=== PATIENT | female | born 1980 | race Caucasian/White ===

== ENCOUNTER 2022-07-19 20:15 | Emergency (ER) | payer MEDICAID ==
[~2022-07-19] VITALS: Ht 160 cm; Wt 95.3 kg
[2022-07-19 20:49] VITALS: BP_SYST 175; BP_SYST 188; BP_DIAS 110; BP_DIAS 124
--- NOTE | 2022-07-19 20:52 | NUR ---
TO LOBBY A/W BED AMBULATORY
--- NOTE | 2022-07-19 21:08 | NUR ---
Dr. Segura examining patient.
[2022-07-19] MEDS ORDERED: SUD30 PO (21:22)
[2022-07-19] MEDS ORDERED: CETI10SG1 PO (21:22)
[2022-07-19] MEDS ORDERED: IBUP-2213 PO (21:22)
[2022-07-19] MEDS ORDERED: SODI44SP20 NS (21:22)
--- NOTE | 2022-07-19 21:35 | NUR ---
SWABS FOR MICHELLE, INFLUENZA, STREP ,SENT TO LAB
[2022-07-19 22:05] VITALS: BP 140/89
--- NOTE | 2022-07-19 22:05 | NUR ---
Patient discharged with v/s stable. Written and verbal after care instructions given and explained. Patient alert, oriented and verbalized understanding of instructions. Ambulatory with steady gait. All questions addressed prior to discharge. ID band removed. Patient advised to follow up with PMD. Rx of ZYRTEC, BUPROFEN, NASAL SPRAY, SUDAFED given. Patient educated on indication of medication including possible reaction and side effects. Opportunity to ask questions provided and answered.
== END 2022-07-19 22:05 | disposition home or self-care (01) ==
LOC: MED 20:15
DX: J02.9 Acute pharyngitis, unspecified (principal); Z20.822 Contact with and (suspected) exposure to COVID-19
CPT/HCPCS: 87081; 99283

== ENCOUNTER 2023-01-16 16:23 | Inpatient (IN) | payer MEDICAID ==
[~2023-01-16] VITALS: Ht 167.6 cm; Wt 121.6 kg
[~2023-01-16 16:23] MED LIST: CETI10SG1 PO; IBUP-2213 PO; SODI44SP20 NS; SUD30 PO
[2023-01-16 16:24] VITALS: BP 173/96
--- NOTE | 2023-01-16 16:25 | NUR ---
LOBBY Addendum: 01/16/23 at 1641 by [email or web address] HANDED ON URINE CUP.
--- NOTE | 2023-01-16 16:29 | NUR ---
PT C/O N/V,GENERALIZED ABDOMINAL PAIN X2 DAYS. SEEN AT [facility] YESTERDAY DX WITH HERNIA PMH: ASTHMA
--- NOTE | 2023-01-16 16:47 | NUR ---
PT W/C ASSISTED TO BED 12.
--- NOTE | 2023-01-16 16:56 | NUR ---
here for umbilical hernia pain 06/07, seen at [facility] yesterday for same complain, told to follow up this coming week + vomiting six times today last bm, yesterday
[2023-01-16 17:33] LABS: BASOPHILS % (AUTO) 0.4 % (0.0-2.0); EOSINOPHILS % (AUTO) 0.1 % (0.0-4.0); HEMATOCRIT 38.8 % (36-48); HEMOGLOBIN 12.5 g/dL (12.0-16.0); LYMPHOCYTES # (AUTO) 1.2 K/uL (2.5-16.5); LYMPHOCYTES % (AUTO) 10.3 % (20.5-51.1); MEAN CORPUSCULAR HEMOGLOBIN 24 pg (27-31); MEAN CORPUSCULAR HGB CONC 32 g/dL (33-37); MEAN CORPUSCULAR VOLUME 74.6 fL (80-94); MONOCYTES # (AUTO) 0.6 K/uL (0.8-1.0); MONOCYTES % (AUTO) 5.4 % (1.7-9.3); NEUTROPHILS # (AUTO) 9.6 K/uL (1.8-7.7); NEUTROPHILS % (AUTO) 83.8 % (42.2-75.2); PLATELET COUNT (AUTO) 313 K/uL (140-450); RED CELL DISTRIBUTION WIDTH 16.4 % (11.6-13.7); WHITE BLOOD COUNT (AUTO) 11.5 K/uL (4.8-10.8)
--- NOTE | 2023-01-16 17:35 | NUR ---
pt to ct via [facility]
[2023-01-16 17:39] LABS: APPEARANCE,URINE SL CLOUDY (CLEAR); BILIRUBIN,URINE 1+ (NEGATIVE); BLOOD, URINE 3+ (NEGATIVE); COLOR,URINE RED (YELLOW); LEUKOCYTE ESTERASE ,URINE TRACE (NEGATIVE); NITRITE, URINE POSITIVE (NEGATIVE); PH,URINE 5.5 (5.0-9.0); UGLUCOSE NEGATIVE (NEGATIVE)
[2023-01-16 17:58] LABS: ALBUMIN 3.8 g/dL (3.4-5.0); ANION GAP 10.7 (8-16); CARBON DIOXIDE 29.7 mmol/L (21-32); CREATININE 0.8 mg/dL (0.6-1.3); POTASSIUM 3.4 mmol/L (3.5-5.1); TOTAL BILIRUBIN 0.1 mg/dL (0.0-1.0)
--- NOTE | 2023-01-16 18:00 | NUR ---
Leatha sargent in [facility] - 01/16/23 at [id number] Raine tinocoied, rayne rai sliding scale
[2023-01-16] MEDS ORDERED: MIRABULK PO (18:12)
[2023-01-16] MEDS ORDERED: DOCU-299 PO (18:12)
[2023-01-16] MEDS ORDERED: AMOX1TAB8 PO (18:14)
[2023-01-16] MEDS ORDERED: TRAM50TA3 PO (18:15)
[2023-01-16] MEDS ORDERED: MORPHINE SULFATE 2 MG/ML SYR IVP STA (18:16)
[2023-01-16] MEDS ORDERED: ACET-8905 PO (18:16)
[2023-01-16] MEDS ORDERED: IBUP-1842 PO (18:16)
[2023-01-16] MEDS ORDERED: NACL 0.9% 1,000 ML IV ONE (18:20)
[2023-01-16] MEDS ORDERED: ONDANSETRON 4 MG/2 ML VIAL IVP ONE (18:20)
[2023-01-16 18:22] LABS: RBC,URINE TOO NUMEROUS TO COUN /HPF (0-5)
[2023-01-16 18:23] LABS: WBC,URINE TOO MANY TO COUNT /HPF (0-5)
[2023-01-16 18:24] LABS: TRICHOMONAS,URINE None Seen /HPF (None Seen); YEAST,URINE None Seen /HPF (None Seen)
[2023-01-16] MEDS ORDERED: KCL 20 MEQ IN 100 mL PREMIX 200 ML IV ONE (18:40)
[2023-01-16] MEDS ORDERED: cefTRIAXone 1,000 MG VIAL ONE (18:40)
--- NOTE | 2023-01-16 18:51 | NUR ---
pt medicated for abd pain, will go to sx, around 1930, ns running wel esteban, sr up times 2
[2023-01-16] MEDS ORDERED: METOCLOPRAMIDE 10 MG/2 ML INJ VIAL ONE (19:00)
[2023-01-16] MEDS ORDERED: SUGAMMADEX SODIUM 200 MG/2 ML VIAL IV ONE ×2 (19:00→21:58)
[2023-01-16] MEDS ORDERED: PROPOFOL 200 MG/20 ML VIAL IV ONE ×2 (19:00→19:56)
[2023-01-16] MEDS ORDERED: ROCURONIUM 50 MG/5 ML VIAL IV ONE ×3 (19:00→20:56)
[2023-01-16] MEDS ORDERED: SUCCINYLCHOLINE CHLORIDE 200 MG/10 ML VIAL IVP ONE ×2 (19:00→19:56)
[2023-01-16] MEDS ORDERED: MEPERIDINE 50 MG/ML SYR ONE ×2 (19:00→20:36)
[2023-01-16] MEDS ORDERED: SEVOFLURANE 250 ML BTL INH ONE (19:00)
[2023-01-16] MEDS ORDERED: diphenhydrAMINE 50 MG/ML VIAL IVP PRN (19:45)
[2023-01-16] MEDS: LACTATED RINGERS 1,000 ML IV SCH (19:45)
[2023-01-16] MEDS ORDERED: MEPERIDINE 25 MG/ML SYR IVP PRN (19:45)
[2023-01-16] MEDS ORDERED: HYDROmorphone 1 MG/ML AMP IVP PRN (19:45)
[2023-01-16] MEDS ORDERED: ONDANSETRON 4 MG/2 ML VIAL IVP PRN (19:45)
--- NOTE | 2023-01-16 19:45 | NUR ---
Patient will be admitted to care of [facility]. Admited to pacu. Will go to room pacu. Belongings list completed. Report to FRANCK.
[2023-01-16] MEDS ORDERED: fentaNYL citrate 0.05 MG/ML VIAL ONE (19:50)
[2023-01-16] MEDS ORDERED: BUPIVACAINE-MPF 0.25% 30 ML VIAL INJ ONE (19:50)
[2023-01-16] MEDS ORDERED: ceFAZolin 1,000 MG VIAL ONE (19:54)
[2023-01-16] MEDS ORDERED: ONDANSETRON 4 MG/2 ML VIAL ONE (19:56)
[2023-01-16] MEDS ORDERED: POTASSIUM CHLORIDE 40 MEQ, LIDOCAINE MPF 1% 25 MG in NACL 0.9% 250 ML IV PRN (20:45)
[2023-01-16] MEDS ORDERED: ZOLPIDEM 5 MG TAB PO PRN (20:45)
[2023-01-16] MEDS ORDERED: DOCUSATE SODIUM 100 MG GELCAP PO PRN (20:45)
[2023-01-16] MEDS ORDERED: guaiFENesin DM 200/20 MG-10 ML 10 ML UDC PO PRN (20:45)
[2023-01-16] MEDS: DEXT 5% /NACL 0.9% 1,000 ML IV SCH (20:45)
[2023-01-16] MEDS ORDERED: ONDANSETRON 4 MG/2 ML VIAL IM/IVP PRN (20:45)
[2023-01-16] MEDS ORDERED: ACETAMINOPHEN 325 MG TAB PO PRN (20:45)
[2023-01-16 21:36] LABS: PROTHROMBIN TIME 10.9 secs (10.8-13.4)
[2023-01-16 21:48] LABS: FREE T4 (FREE THYROXINE) 1.06 ng/dL (0.76-1.46); PHOSPHORUS 3.4 mg/dL (2.5-4.9); THYROID STIMULATING HORMONE 1.23 uIU/mL (0.34-3.74)
[2023-01-16] MEDS ORDERED: MEPERIDINE 25 MG/ML SYR ONE (22:06)
[2023-01-16] MEDS: LABETALOL 100 MG/20 ML VIAL ONE ×2 (22:28→22:41)
[2023-01-16] MEDS ORDERED: LABETALOL 20 MG/4 ML VIAL IVP PRN (22:30)
--- NOTE | 2023-01-16 23:10 | NUR ---
RECEIVED REPORT FROM OR NURSE. PATIENT AAOX4. ON ROOM AIR. NO SOB NOTED. IV SITE ON THE LEFT AC INTACT AND PATENT. PATIENT IS S/P VENTRAL HERNIA REPAIR. WITH MIGNON DRAIN ON THE LEFT SIDE. CLIFTON CATHETER DRAINING CLEAR YELLOW URINE. FAMILY MEMBER AT BEDSIDE. MRSA SCREENING DONE. CALL LIGHT WITHIN REACH. SAFETY MEASURES IN PLACE. WILL CONTINUE TO MONITOR.
[2023-01-16 23:26] LABS: CHOL/HDL RATIO 3.6 (1-4.5); MAGNESIUM 0.1 mg/dL (1.8-2.4)
[2023-01-17] MEDS ORDERED: KCL 20 MEQ IN 100 mL PREMIX 100 ML IV ONE ×2 (00:45→00:50)
[2023-01-17] MEDS: DEXT 5% /NACL 0.9% 1,000 ML IV SCH ×4 (03:00→22:23)
[2023-01-17 04:00] VITALS: BP 157/101
--- NOTE | 2023-01-17 04:00 | NUR ---
MIGNON DRAIN 30 ML OUT.
[2023-01-17] MEDS: LACTATED RINGERS 1,000 ML IV SCH ×3 (04:05→17:50)
[2023-01-17] MEDS ORDERED: MAG SULF 2000 MG/WATER PREMIX 50 ML IV SCH (04:05)
[2023-01-17] MEDS: MORPHINE SULFATE 2 MG/ML SYR IVP PRN ×3 (05:23→16:56)
[2023-01-17 07:18] LABS: BASOPHILS % (AUTO) 0.1 % (0.0-2.0); EOSINOPHILS % (AUTO) 0.1 % (0.0-4.0); HEMATOCRIT 41.6 % (36-48); HEMOGLOBIN 13.3 g/dL (12.0-16.0); LYMPHOCYTES # (AUTO) 0.7 K/uL (2.5-16.5); LYMPHOCYTES % (AUTO) 5.9 % (20.5-51.1); MEAN CORPUSCULAR HEMOGLOBIN 24 pg (27-31); MEAN CORPUSCULAR HGB CONC 32 g/dL (33-37); MEAN CORPUSCULAR VOLUME 75.2 fL (80-94); MONOCYTES % (AUTO) 8.8 % (1.7-9.3); NEUTROPHILS # (AUTO) 10.2 K/uL (1.8-7.7); NEUTROPHILS % (AUTO) 85.1 % (42.2-75.2); PLATELET COUNT (AUTO) 261 K/uL (140-450); RED BLOOD CELL COUNT(AUTO) 5.54 MIL/uL (4.20-5.40); RED CELL DISTRIBUTION WIDTH 16.4 % (11.6-13.7); WHITE BLOOD COUNT (AUTO) 11.9 K/uL (4.8-10.8)
--- NOTE | 2023-01-17 07:24 | NUR ---
ENDORSED PATIENT TO AM SHIFT NURSE KYLEE FOR CONTINUITY OF CARE.
[2023-01-17 07:30] LABS: ANION GAP 11.4 (8-16); CARBON DIOXIDE 28.7 mmol/L (21-32); CREATININE 0.9 mg/dL (0.6-1.3); POTASSIUM 4.1 mmol/L (3.5-5.1)
[2023-01-17 08:00] VITALS: BP 150/87
--- NOTE | 2023-01-17 08:04 | NUR ---
GOT REPORT FROM THE NIGHT NURSE, PT SLEEPING NO SOB.[id number]
--- NOTE | 2023-01-17 08:44 | NUR ---
PATIENT HAS BEEN SCREENED AND CATEGORIZED MODERATE NUTRITION RISK. PATIENT WILL BE SEEN WITHIN 3-5 DAYS OF ADMISSION. 01/16/23-01/21/[address]
[2023-01-17] MEDS: PANTOPRAZOLE 40 MG INJ VIAL IVP SCH (08:56)
[2023-01-17] MEDS: HYDROmorphone 1 MG/ML AMP IVP PRN ×2 (11:58→23:37)
[2023-01-17 12:00] VITALS: BP 150/85
[2023-01-17 16:00] VITALS: BP 102/51
--- NOTE | 2023-01-17 18:34 | NUR ---
pt walked without sob in the [address] with the family, yaz drained 30cc for the shift. pt medicated for pain as ordered.[email or web address]
--- NOTE | 2023-01-17 19:18 | NUR ---
RECEIVED REPORT FROM DAY SHIFT NURSE KYLEE FOR CONTINUITY OF CARE. PT AWAKE IN BED. ON PROPERTY SUPERVISOR. RESPIRATIONS EVEN AND UNLABORED ON RA. NO DISTRESS NOTED. CLIFTON CATHETER DRAINING TO GRAVITY. MIGNON DRAIN IN PLACE, INTACT. IV SITE ON LAC G20, INFUSING IVF. ABDOMINAL DRESSING DRY AND INTACT. INITIAL ASSESSMENT DONE. POC DISCUSSED WITH PT AND BERRY BHATTI. CALL LIGHT WITHIN REACH. SAFETY PRECAUTIONS IN PLACE. Addendum: 01/18/23 at 0156 by Lashanda Humphries LVN IVF RUNNING D10 AT 100ML/HR. PER BERRY HOLLINGSWORTH CONFIRMED WITH DR MILIAN TO RUN D10, GOAL IS TO HAVE BS ABOVE 100. Addendum: 01/18/23 at 0157 by Lashanda Humphries LVN AMENDMENT FOR OTHER PT.
--- NOTE | 2023-01-17 19:19 | NUR ---
RECEIVED REPORT FROM DAY SHIFT NURSE KYLEE FOR CONTINUITY OF CARE. PT AWAKE IN BED. ON LABOR OPERATOR. RESPIRATIONS EVEN AND UNLABORED ON RA. NO DISTRESS NOTED. CLIFTON CATHETER DRAINING TO GRAVITY. MIGNON DRAIN IN PLACE, INTACT. IV SITE ON LAC G20, INFUSING IVF. ABDOMINAL DRESSING DRY AND INTACT. INITIAL ASSESSMENT DONE. POC DISCUSSED WITH PT AND BERRY BHATTI. CALL LIGHT WITHIN REACH. SAFETY PRECAUTIONS IN PLACE.
[2023-01-17 20:00] VITALS: BP 128/84
--- NOTE | 2023-01-17 21:00 | NUR ---
Patient's Plan of Care was discussed and reviewed with GAS PLANT SPECIALIST: STAR VALLEJO
[2023-01-17] MEDS: HYDROcodone/APAP 7.5/325 MG 1 TAB PO PRN (21:45)
--- NOTE | 2023-01-17 23:32 | NUR ---
PT COMPLAINING OF ABD PAIN 08/08. INFORMED RN. V/S WITHIN NORMAL LIMITS.
[2023-01-18] VITALS: BP 127/92
[2023-01-18 04:00] VITALS: BP 137/92
[2023-01-18] MEDS: DEXT 5% /NACL 0.9% 1,000 ML IV SCH (04:00)
--- NOTE | 2023-01-18 04:35 | NUR ---
V/S WAS TAKEN. DRAINED 300CC OF DARK DUSTIN URINE FROM FC AND 30CC FROM MIGNON DRAIN. PT COMPLAINING OF ABDOMINAL PAIN 07/08, WILL INFORM RN.
[2023-01-18] MEDS: LACTATED RINGERS 1,000 ML IV SCH ×2 (05:05→11:20)
[2023-01-18] MEDS: MORPHINE SULFATE 2 MG/ML SYR IVP PRN ×2 (05:15→08:39)
--- NOTE | 2023-01-18 07:17 | NUR ---
GAVE BEDSIDE REPORT TO BERRY PICHARDO FOR CONTINUITY OF CARE. ALL NEEDS MET THROUGHOUT SHIFT. PT IN STABLE CONDITION.
[2023-01-18 07:19] LABS: BASOPHILS % (AUTO) 0.3 % (0.0-2.0); EOSINOPHILS % (AUTO) 0.1 % (0.0-4.0); HEMOGLOBIN 12.4 g/dL (12.0-16.0); LYMPHOCYTES # (AUTO) 1.1 K/uL (2.5-16.5); MEAN CORPUSCULAR HEMOGLOBIN 24 pg (27-31); MEAN CORPUSCULAR HGB CONC 32 g/dL (33-37); MEAN CORPUSCULAR VOLUME 76.7 fL (80-94); MONOCYTES # (AUTO) 1.3 K/uL (0.8-1.0); MONOCYTES % (AUTO) 11.8 % (1.7-9.3); NEUTROPHILS # (AUTO) 8.6 K/uL (1.8-7.7); NEUTROPHILS % (AUTO) 77.8 % (42.2-75.2); PLATELET COUNT (AUTO) 287 K/uL (140-450); RED BLOOD CELL COUNT(AUTO) 5.09 MIL/uL (4.20-5.40); RED CELL DISTRIBUTION WIDTH 16.4 % (11.6-13.7); WHITE BLOOD COUNT (AUTO) 11.1 K/uL (4.8-10.8)
[2023-01-18 07:27] LABS: ANION GAP 11.2 (8-16); CARBON DIOXIDE 26.5 mmol/L (21-32); CREATININE 1.1 mg/dL (0.6-1.3); POTASSIUM 3.7 mmol/L (3.5-5.1)
--- NOTE | 2023-01-18 07:34 | NUR ---
RECEIVED REPORT FROM BURR BENCH OPERATOR NURSE. PATIENT IS RESTING NO SOB. DISCUSSED PLAN OF CARE. [id number]
[2023-01-18 08:00] VITALS: BP 156/68
[2023-01-18] MEDS ORDERED: ENOXAPARIN 40 MG/0.4 ML SYR SUBQ SCH (09:00)
[2023-01-18 09:06] LABS: T4 (THYROXINE) 8.9 ug/dL (4.5-12.0)
[2023-01-18] MEDS: PANTOPRAZOLE 40 MG INJ VIAL IVP SCH (09:06)
[2023-01-18] MEDS: HYDROcodone/APAP 7.5/325 MG 1 TAB PO PRN (10:46)
--- NOTE | 2023-01-18 10:49 | NUR ---
PT REPORTS PAIN IN ABDOMINAL AREA 08/08 AND REQUESTS MORPHINE. EXPLAINED TO PT MORPHINE NOT DUE UNTIL 1429. GIVEN NORCO INSTEAD.
[2023-01-18 12:00] VITALS: BP 148/90
[2023-01-18] MEDS: HYDROmorphone 1 MG/ML AMP IVP PRN (12:54)
[2023-01-18] MEDS ORDERED: AMOX1TAB8 PO (15:52)
[2023-01-18 16:00] VITALS: BP 148/90
--- NOTE | 2023-01-18 17:12 | NUR ---
PATIENT DISCHARGED. DISCHARGE INSTRUCTIONS GIVEN. CLIFTON CATHETER, IV AND WRISTBAND REMOVED. PATIENT EDUCATION PROVIDED. PATIENT LEFT BY WHEELCHAIR, NOT IN DISTRESS. [id number]
[2023-01-19] MEDS ORDERED: HYDR-5080 PO (11:40)
== END 2023-01-18 16:48 | disposition home or self-care (01) | DRG 227 ==
LOC: MED 16:23 → MMU 18:39 → MTU 19:33
PROVIDERS: ADMIT Family Medicine; ATTEND Family Medicine
PROC: 0WUF0JZ Supplement Abdominal Wall with Synthetic Substitute, Open Approach (ICD-10-PCS; 2023-01-16)
PROC: 0DBU0ZZ Excision of Omentum, Open Approach (ICD-10-PCS; principal; 2023-01-16 19:30)
DX: K43.6 Other and unspecified ventral hernia with obstruction, without gangrene (principal); D72.829 Elevated white blood cell count, unspecified; E66.01 Morbid (severe) obesity due to excess calories; E83.42 Hypomagnesemia; E87.6 Hypokalemia; Z20.822 Contact with and (suspected) exposure to COVID-19; J45.909 Unspecified asthma, uncomplicated; Z79.891 Long term (current) use of opiate analgesic; Z68.41 Body mass index [BMI] 40.0-44.9, adult
CPT/HCPCS: 36415; 71045; 80048; 80053; 81001; 82150; 83036; 83605; 83690; 83735; 83880; 84100; 84436; 84439; 84443; 84479; 85025; 85610; 85730; 86886; 86900; 86901; 87081; 87086; 88302; 88304; 93005; 96365; 96375; 99285; C1781; C9113; J0330; J0690; J0696; J1170; J1650; J2175; J2270; J2405; J2704; J2765; J3010; J3475; J3480; J3490; J7060; Q0092

== ENCOUNTER 2023-01-20 23:10 | Emergency (ER) | payer MEDICAID ==
[~2023-01-20] VITALS: Ht 167.6 cm; Wt 121.6 kg
[~2023-01-20 23:10] MED LIST changes: +ACET-8905 PO; +AMOX1TAB8 PO; +DOCU-299 PO; +HYDR-5080 PO; +IBUP-1842 PO; +MIRABULK PO
[2023-01-20 23:16] VITALS: BP 138/91
--- NOTE | 2023-01-20 23:43 | NUR ---
42yo F BIB ambulance from home for drainage from abdominal surgical site started 2 hours ago this evening. Pt had abdominal hernia repair x 4 days ago. Silverio intact to mid abdominal area. Has serosanguinous drainage at this time. Denies fever, denies pain. No nausea or vomiting. No distress not.
[2023-01-21] MEDS ORDERED: ceFAZolin 1,000 MG VIAL IM ONE (00:05)
--- NOTE | 2023-01-21 00:10 | NUR ---
ABD dressing place on mid abdominal surgical site
[2023-01-21] MEDS ORDERED: CEPH-588 PO (00:38)
[2023-01-21 00:40] VITALS: BP 152/81
== END 2023-01-21 00:40 | disposition home or self-care (01) ==
LOC: MED 23:10
DX: L03.311 Cellulitis of abdominal wall (principal); J45.909 Unspecified asthma, uncomplicated; Z98.890 Other specified postprocedural states; Z79.899 Other long term (current) drug therapy; Z79.2 Long term (current) use of antibiotics; Z79.891 Long term (current) use of opiate analgesic; Z79.1 Long term (current) use of non-steroidal anti-inflammatories (NSAID)
CPT/HCPCS: 96372; 99283; J0690

== ENCOUNTER 2023-01-25 11:38 | Emergency (ER) | payer MEDICAID ==
[~2023-01-25] VITALS: Ht 160 cm; Wt 124.7 kg
[~2023-01-25 11:38] MED LIST changes: +CEPH-588 PO
[2023-01-25 11:49] VITALS: BP 170/112
--- NOTE | 2023-01-25 12:20 | NUR ---
42YO FEMALE PT IN FOR STAPLE REMOVAL. REPORTS VENTRAL ABD SURGERY ON 01/16. PRESENTS WITH 29 JOHN IN LOWER ABD, PINK ACTIVE DRAINAGE NOTED. JOHN IN TACT. DENIES PAIN, N/V/D, FEVER OR CHILLS. PT AAOX4, HOB POSITIONED PER COMFORT HX:ASTHMA NKA
--- NOTE | 2023-01-25 12:30 | NUR ---
42/F REQUESTING ABDOMINAL STAPLE REMOVAL, STATES SHE WAS HERE TWO WEEKS AGO AND HAD HERNIA REPAIR SURGERY. STATES SHE CANNOT RECALL SURGEONS NAME NOR DOES SHE KNOW HOW TO CONTACT HIM. DENIES WORSENING PAIN, FEVERS OR CHILLS.
--- NOTE | 2023-01-25 13:32 | NUR ---
Patient discharged with v/s stable. Written and verbal after care instructions given and explained. Patient verbalized understanding. Ambulatory with steady gait. All questions addressed prior to discharge. Advised to follow up with PMD.
== END 2023-01-25 13:32 | disposition home or self-care (01) ==
LOC: MED 11:38
DX: Z48.01 Encounter for change or removal of surgical wound dressing (principal); J45.909 Unspecified asthma, uncomplicated; Z98.890 Other specified postprocedural states; Z79.899 Other long term (current) drug therapy; Z79.1 Long term (current) use of non-steroidal anti-inflammatories (NSAID); Z79.2 Long term (current) use of antibiotics; Z79.891 Long term (current) use of opiate analgesic
CPT/HCPCS: 99281

== ENCOUNTER 2023-07-11 14:40 | Emergency (ER) | payer MEDICAID ==
[~2023-07-11] VITALS: Ht 160 cm; Wt 119.3 kg
[2023-07-11 15:10] VITALS: BP 172/104; PULSE 139; RESP 22; TEMP 101.5; O2SAT 94
[2023-07-11 15:30] VITALS: O2SAT 97
[2023-07-11] MEDS ORDERED: NACL 0.9% 1,000 ML IV ONE (15:45)
[2023-07-11] MEDS ORDERED: ACETAMINOPHEN EXTRA STRENGTH 500 MG TAB PO ONE (15:45)
[2023-07-11 15:51] LABS: BASOPHILS % (AUTO) 0.3 % (0.0-2.0); EOSINOPHILS % (AUTO) 0.1 % (0.0-4.0); HEMATOCRIT 37.7 % (36-48); HEMOGLOBIN 12.2 g/dL (12.0-16.0); LYMPHOCYTES # (AUTO) 0.5 K/uL (2.5-16.5); LYMPHOCYTES % (AUTO) 5.6 % (20.5-51.1); MEAN CORPUSCULAR HEMOGLOBIN 23 pg (27-31); MEAN CORPUSCULAR HGB CONC 32 g/dL (33-37); MEAN CORPUSCULAR VOLUME 71.4 fL (80-94); MONOCYTES # (AUTO) 0.8 K/uL (0.8-1.0); MONOCYTES % (AUTO) 8.7 % (1.7-9.3); NEUTROPHILS # (AUTO) 7.6 K/uL (1.8-7.7); NEUTROPHILS % (AUTO) 85.3 % (42.2-75.2); PLATELET COUNT (AUTO) 239 K/uL (140-450); RED BLOOD CELL COUNT(AUTO) 5.28 MIL/uL (4.20-5.40); RED CELL DISTRIBUTION WIDTH 16.8 % (11.6-13.7); WHITE BLOOD COUNT (AUTO) 8.9 K/uL (4.8-10.8)
[2023-07-11 16:06] LABS: FLU A ANTIGEN negative (NEGATIVE); FLU B ANTIGEN negative (NEGATIVE)
[2023-07-11 16:06] LABS: ALBUMIN 3.2 g/dL (3.4-5.0); ANION GAP 14.5 (8-16); CALCIUM 8.2 mg/dL (8.5-10.1); CARBON DIOXIDE 25.7 mmol/L (21-32); POTASSIUM 3.2 mmol/L (3.5-5.1); TOTAL BILIRUBIN 0.4 mg/dL (0.0-1.0); TOTAL PROTEIN, SERUM 7.6 g/dL (6.4-8.2)
[2023-07-11] MEDS ORDERED: IBUP-2213 PO (16:55)
[2023-07-11] MEDS ORDERED: ACET-10509 PO (16:55)
[2023-07-11] MEDS ORDERED: NIRM1TAB PO (16:55)
[2023-07-11 17:42] VITALS: O2SAT 99
[2023-07-11 19:37] VITALS: O2SAT 99
[2023-07-11 19:45] VITALS: BP 170/86; TEMP 98.4
[2023-07-11 20:47] VITALS: PULSE 107; RESP 18; O2SAT 96
== END 2023-07-11 20:47 | disposition home or self-care (01) ==
LOC: MED 14:40
DX: U07.1 COVID-19 (principal); J06.9 Acute upper respiratory infection, unspecified; J45.909 Unspecified asthma, uncomplicated; I10 Essential (primary) hypertension; Z98.890 Other specified postprocedural states; Z79.899 Other long term (current) drug therapy; Z79.1 Long term (current) use of non-steroidal anti-inflammatories (NSAID); Z79.2 Long term (current) use of antibiotics
CPT/HCPCS: 36415; 71275; 80053; 81025; 85025; 85379; 87426; 87804; 99285; Q9967

== ENCOUNTER 2023-10-24 14:48 | Emergency (ER) | payer MEDICAID ==
[~2023-10-24] VITALS: Ht 160 cm; Wt 118.8 kg
[~2023-10-24 14:48] MED LIST changes: +ACET-10509 PO; +NIRM1TAB PO
[2023-10-24 15:28] VITALS: PULSE 100; RESP 16; TEMP 98; O2SAT 97
[2023-10-24] MEDS ORDERED: DIPH25TA53 PO (17:24)
[2023-10-24] MEDS ORDERED: HYD1C TP (17:24)
[2023-10-24 17:42] VITALS: BP 115/65; PULSE 100; RESP 16; TEMP 98; O2SAT 97
== END 2023-10-24 17:44 | disposition home or self-care (01) ==
LOC: MED 14:48
DX: L25.9 Unspecified contact dermatitis, unspecified cause (principal); J45.909 Unspecified asthma, uncomplicated; I10 Essential (primary) hypertension; Z79.899 Other long term (current) drug therapy
CPT/HCPCS: 99282

== ENCOUNTER 2024-02-01 13:32 | Emergency (ER) | payer MEDICAID ==
[~2024-02-01] VITALS: Ht 160 cm; Wt 120.8 kg
[~2024-02-01 13:32] MED LIST changes: +DIPH25TA53 PO; +HYD1C TP
[2024-02-01 13:55] VITALS: BP 165/139; PULSE 99; RESP 20; TEMP 98.1; O2SAT 95
[2024-02-01] MEDS: IBUPROFEN 600 MG TAB PO ONE (14:38)
[2024-02-01 14:41] LABS: FLU A ANTIGEN negative (NEGATIVE); FLU B ANTIGEN negative (NEGATIVE)
[2024-02-01] MEDS ORDERED: IBUP-2213 PO (15:16)
[2024-02-01] MEDS ORDERED: BENZ-300 PO (15:16)
== END 2024-02-01 15:21 | disposition home or self-care (01) ==
LOC: MED 13:32
DX: J02.8 Acute pharyngitis due to other specified organisms (principal); Z20.822 Contact with and (suspected) exposure to COVID-19; B97.89 Other viral agents as the cause of diseases classified elsewhere; J45.909 Unspecified asthma, uncomplicated; I10 Essential (primary) hypertension; Z79.899 Other long term (current) drug therapy
CPT/HCPCS: 87081; 99283